=== PATIENT | female | born 1990 | race Caucasian/White ===

== ENCOUNTER 2018-03-24 00:04 | Emergency (ER) | payer MEDICAID ==
[2018-03-24] MEDS: SOD CHLORIDE 0.9% 1,000 ML IV (02:37)
[2018-03-24] MEDS: ACETAMINOPHEN 325 MG TAB PO (02:37)
[2018-03-24] MEDS: ONDANSETRON 4 MG INJ IV (02:38)
[2018-03-24 02:56] LABS: BARBITURATES Negative (NEGATIVE); BENZODIAZEPINES Negative (NEGATIVE); CANNABINOIDS Negative (NEGATIVE); COCAINE Negative (NEGATIVE); OPIATES Negative (NEGATIVE)
[2018-03-24 02:57] LABS: ADD MAN DIFF? NO
[2018-03-24 02:59] LABS: WHITE BLOOD COUNT 8.3 10^3/ul (4.8-10.8)
[2018-03-24 02:59] LABS: BASOPHIL # 0.1 10^3/ul (0.0-0.1); BASOPHILS % 0.6 % (0.0-2.0); EOSINOPHILS # 0.5 10^3/ul (0.0-0.5); EOSINOPHILS % 5.8 % (0.0-7.0); HEMOGLOBIN 11.4 g/dl (12.0-16.0); LYMPHOCYTES # 2.5 10^3/ul (0.8-2.9); LYMPHOCYTES % 29.6 % (15.0-51.0); MEAN CORPUSCULAR HEMOGLOBIN 31.2 pg (29.0-33.0); MEAN CORPUSCULAR HGB CONC 33.5 g/dl (32.0-37.0); MEAN CORPUSCULAR VOLUME 93.2 fl (82.0-101.0); MEAN PLATELET VOLUME 10.9 fl (7.4-10.4); MONOCYTE # 0.7 10^3/ul (0.3-0.9); MONOCYTES % 8.1 % (0.0-11.0); NEUTROPHIL # 4.6 10^3/ul (1.6-7.5); NEUTROPHILS % 55.2 % (39.0-77.0); PLATELET COUNT 205 10^3/UL (140-415); RED BLOOD COUNT 3.65 10^6/ul (4.20-5.40); RED CELL DISTRIBUTION WIDTH 14.5 % (11.5-14.5)
[2018-03-24 03:09] LABS: AMPHETAMINE/METHAMPHETAMINE POSITIVE (NEGATIVE)
[2018-03-24 04:31] LABS: ADD UMIC YES; UR COLOR YELLOW (YELLOW)
[2018-03-24 04:32] LABS: UR BILIRUBIN (Dip) NEGATIVE (NEGATIVE); UR BLOOD (Dip) NEGATIVE (NEGATIVE); UR CLARITY SLIGHTLY CLOUDY (CLEAR); UR GLUCOSE (Dip) NEGATIVE (NEGATIVE); UR KETONES (Dip) NEGATIVE (NEGATIVE); UR LEUKOCYTE ESTERASE (Dip) NEGATIVE Leu/ul (NEGATIVE); UR NITRITE (Dip) POSITIVE (NEGATIVE); UR TOTAL PROTEIN (Dip) NEGATIVE (NEGATIVE); UR UROBILINOGEN (Dip) 0.2 E.U./dL mg/dL (NEGATIVE)
[2018-03-24 04:33] LABS: UR BACTERIA MODERATE /HPF (NONE SEEN); UR SQUAMOUS EPITHELIAL CELL FEW /HPF (FEW)
== END 2018-03-24 06:15 | disposition home or self-care (01) ==
LOC: FTE 00:04
DX: O99.322 Drug use complicating pregnancy, second trimester (principal); F15.10 Other stimulant abuse, uncomplicated; R10.2 Pelvic and perineal pain; Z3A.15 15 weeks gestation of pregnancy
CPT/HCPCS: 36415; 76801; 80307; 81001; 84702; 85025; 86900; 86901; 96361; 96374; 99285-25

== ENCOUNTER 2018-08-18 12:46 | Outpatient (CLI) | payer OTHER | END 2018-08-18 14:30 | disposition home or self-care (01) | LOC: OBT 12:46 → L-D 12:46 → OBT 14:30 | DX: O26.893 Other specified pregnancy related conditions, third trimester (principal); Z3A.36 36 weeks gestation of pregnancy; T25.012A Burn of unspecified degree of left ankle, initial encounter; T31.0 Burns involving less than 10% of body surface; X08.8XXA Exposure to other specified smoke, fire and flames, initial encounter | CPT/HCPCS: 76818 ==

== ENCOUNTER 2018-08-18 14:39 | Emergency (ER) | payer OTHER ==
[2018-08-18] MEDS: SILVER SULFADIAZINE 1% 25 GM CR TOP (15:00)
[2018-08-18] MEDS ORDERED: NEOMYC/POLYMYX/BACIT 30 GM OINT TOP (15:00)
== END 2018-08-18 15:42 | disposition home or self-care (01) ==
LOC: FTE 14:39
DX: T25.012A Burn of unspecified degree of left ankle, initial encounter (principal); X10.2XXA Contact with fats and cooking oils, initial encounter; Y92.9 Unspecified place or not applicable
CPT/HCPCS: 16020; 99283-25

== ENCOUNTER 2018-11-13 11:46 | Emergency (ER) | payer OTHER | END 2018-11-13 13:42 | disposition home or self-care (01) | LOC: E/R 11:46 | DX: R22.0 Localized swelling, mass and lump, head (principal); R07.9 Chest pain, unspecified | CPT/HCPCS: 70450; 70486; 71045; 99284-25 ==

== ENCOUNTER 2018-12-22 15:54 | Emergency (ER) | payer OTHER ==
[2018-12-22] MEDS: HYDROCODONE/APAP (5/325) TAB PO (17:37)
[2018-12-22] MEDS: IBUPROFEN 200 MG TAB PO (17:37)
== END 2018-12-22 18:45 | disposition home or self-care (01) ==
LOC: FTE 15:54
DX: S22.41XA Multiple fractures of ribs, right side, initial encounter for closed fracture (principal); Y09 Assault by unspecified means
CPT/HCPCS: 71100; 99283-25